=== PATIENT | male | born 1945 | race Caucasian/White ===

== ENCOUNTER → 2020-07-20 09:33 | Outpatient (BNVA) | payer MEDICARE, SELFPAY | PROVIDERS: Visit Provider Orthopaedic Surgery | DX: S86.011D Strain of right Achilles tendon, subsequent encounter (principal) | CPT/HCPCS: 99213 ==

== ENCOUNTER → 2020-09-21 09:40 | Outpatient (BNVA) | payer MEDICARE, SELFPAY | PROVIDERS: Visit Provider Orthopaedic Surgery | DX: Z98.890 Other specified postprocedural states (principal) | CPT/HCPCS: 99212 ==